=== PATIENT | male | born 1990 | race African-American/Black ===

== ENCOUNTER 2016-10-16 17:11 | Emergency (ER) | payer MEDICAID, OTHER ==
[~2016-10-16] VITALS: Ht 185.4 cm; Wt 81.4 kg
[2016-10-16 17:34] VITALS: BP 131/90
== END 2016-10-16 18:49 | disposition home or self-care (01) ==
LOC: EMS 17:12
DX: S00.83XA Contusion of other part of head, initial encounter (principal); S70.212A Abrasion, left hip, initial encounter; S30.810A Abrasion of lower back and pelvis, initial encounter; F17.210 Nicotine dependence, cigarettes, uncomplicated; Z02.89 Encounter for other administrative examinations; Y35.811A Legal intervention involving manhandling, law enforcement official injured, initial encounter; Y93.89 Activity, other specified; Y92.89 Other specified places as the place of occurrence of the external cause; Y99.8 Other external cause status
CPT/HCPCS: 99283; 99406

== ENCOUNTER 2018-05-17 08:10 | Emergency (ER) | payer OTHER ==
[~2018-05-17] VITALS: Ht 182.9 cm; Wt 88.6 kg
[2018-05-17] MEDS ORDERED: BUPIVACAINE HCL/PF 0.5% 10 ML VIAL IM ONE (08:45)
[2018-05-17] MEDS ORDERED: LIDOCAINE 1% 10 ML VIAL INJ ONE (08:45)
[2018-05-17] MEDS ORDERED: BUPIVACAINE HCL/PF 0.5% 10 ML VIAL INJ ONE (09:00)
[2018-05-17 09:24] VITALS: BP 147/95
== END 2018-05-17 09:39 | disposition home or self-care (01) ==
LOC: EMS 08:11
DX: K02.9 Dental caries, unspecified (principal); F17.210 Nicotine dependence, cigarettes, uncomplicated
CPT/HCPCS: 64400; 99284; J3490 ×2